=== PATIENT | female | born 1950 | race Caucasian/White ===

== ENCOUNTER 2016-04-22 06:32 | Day surgery (SDC) | payer MEDICARE ==
[2016-04-21 14:29] VITALS: BMI 27.4
[~2016-04-22 06:32] MED LIST: ALPRAZolam 0.25 MG TAB PO PRN; ALPRAZolam 0.5 MG TAB PO PRN; ASPIRIN 325 MG TAB PO STA; ATORVASTATIN 80 MG TAB PO STA; NITROGLYCERIN SL TABS 0.4 MG TAB SUBLINGUAL PRN; SODIUM CHLORIDE 0.9% 1,000 ML in EMPTY BAG 1 BAG IV ONE
[2016-04-22 06:50] VITALS: RESP 16; TEMP 98.1
[2016-04-22] MEDS ORDERED: VERAPAMIL 2.5 MG/ML 2 ML AMP ONE (07:10)
[2016-04-22] MEDS ORDERED: SODIUM CHLORIDE 0.9% (PF) 10 ML VIAL ONE (07:10)
[2016-04-22] MEDS ORDERED: LIDOCAINE 2% INJ 20 MG/ML (20 ML MDV) ONE (07:10)
[2016-04-22] MEDS ORDERED: diphenhydrAMINE 50 MG/ML 1 ML VIAL ONE (07:11)
[2016-04-22] MEDS ORDERED: fentaNYL (PF) 50 MCG/ML 2 ML AMP ONE (07:11)
[2016-04-22] MEDS ORDERED: diphenhydrAMINE 50 MG/ML 1 ML VIAL IVP ONE (07:35)
[2016-04-22] MEDS ORDERED: fentaNYL (PF) 50 MCG/ML 2 ML AMP IV ONE (07:35)
[2016-04-22] MEDS ORDERED: HEPARIN SODIUM 1,000 UNIT/ML VIAL ONE (07:39)
[2016-04-22] MEDS ORDERED: LIDOCAINE 2% INJ 20 MG/ML SQ ONE (07:39)
[2016-04-22] MEDS ORDERED: MIDAZOLAM 2 MG/2 ML VIAL ONE (07:43)
[2016-04-22] MEDS: MIDAZOLAM 2 MG/2 ML VIAL IVP ONE ×2 (07:44→07:47)
[2016-04-22] MEDS ORDERED: VERAPAMIL SYRINGE (5 MG/10 ML) INTRAARTER ONE (07:44)
[2016-04-22] MEDS ORDERED: HEPARIN SODIUM 1,000 UNIT/ML VIAL IV ONE (07:51)
[2016-04-22] MEDS ORDERED: IOHEXOL 350 MG/ML 100 ML BOTTLE INJ ONE (08:13)
[2016-04-22] MEDS ORDERED: RX INFO: IV CONTRAST WAS GIVEN 1 EACH MISC MISCELLANE PRN (08:21)
[2016-04-22] MEDS ORDERED: CYCLOBENZAPRINE 10 MG TAB PO PRN (08:22)
[2016-04-22] MEDS ORDERED: LEVOTHYROXINE PO SCH (08:30)
[2016-04-22] MEDS ORDERED: SODIUM CHLORIDE 0.9% 1,000 ML IV SCH (08:30)
[2016-04-22] MEDS ORDERED: LIOTHYRONINE SODIUM 5 MCG TAB PO SCH (09:00)
[2016-04-22] MEDS ORDERED: DULoxetine HCL 30 MG CAPSULE.DR PO SCH (09:00)
--- NOTE | 2016-04-22 10:07 | CC ---
DATE OF SERVICE: Mrs. Nunes is a 65-year-old female with known history of hypertension, hyperlipidemia, who has been complaining of occasional episodes of chest discomfort, underwent a myocardial perfusion imaging that revealed evidence of apical ischemia. In view of that, recommendation made regarding cardiac catheterization. The procedure as well as the risks and complications were discussed with the patient who is in full understanding and agreement. PROCEDURE: Patient was brought to the laboratory coordinator in a fasting semi-sedated state. After using fentanyl and Benadryl, she was draped and prepped in conventional fashion using Xylocaine anesthesia and Seldinger technique, a 6 Tajik sheath was introduced in left radial artery. Selective right and left coronary angiography was performed using 5 Tajik 4 bend right and left Stephane catheters. Multiple views of the coronary arteries including hemiaxial views were obtained. Following that, a 5 Tajik tight pigtail catheter was introduced into the left ventricle and a 30 degrees CUNHA view of the left ventricle was obtained. Following that, catheter and sheaths were removed. Hemostasis was obtained with deployment of a TR band. There were no immediate complications. Patient is returned to her room in stable condition. Of note, the patient received of 3500 units of intravenous heparin as well as intra-arterial verapamil. FLUOROSCOPY: There is calcification involving the left coronary system. LEFT MAIN: This is a large-size vessel bifurcating into the left circumflex, left anterior descending artery. Left main coronary artery has no evidence of high-grade stenosis. LEFT ANTERIOR DESCENDING ARTERY DISEASE: This is a moderately-sized vessel reaching toward the apex with a wrap around the apex segment, giving rise to 2 diagonal branches. The left anterior descending artery has intimal disease in the mid and distal segment with area of stenosis up to 40 to 50%. The vessel distally is small in caliber. The first diagonal branch has an area of stenosis of about 60% but the vessel beyond that is small in caliber. LEFT CIRCUMFLEX: This is a large dominant vessel, bifurcating into PDA and posterolateral segment and branches, giving rise to obtuse marginal branch proximally. The left circumflex and branches have no evidence of high-grade stenosis. RIGHT CORONARY ARTERY: This is a small nondominant vessel that has no evidence of high-grade stenosis. LEFT VENTRICULOGRAM: Left ventriculogram was performed in 30 degrees CUNHA view and revealed normal left ventricular size and systolic function. Ejection fraction 60%. HEMODYNAMICS: There was no gradient across the aortic valve. The left ventricular end-diastolic pressure was 16 mmHg. CONCLUSION: 1. Calcified coronary arteries. 2. Mild to moderate disease in the mid left anterior descending coronary artery with moderate significant disease in the small first diagonal branch. 3. Normal left ventricle size and systolic function. RECOMMENDATIONS: In view of findings and anatomy, I have recommend continued medical therapy with aggressive coronary risk factor modifications that has been initiated. Those findings and recommendations were discussed with the patient and her family and they are in full understanding and agreement.
--- NOTE | 2016-04-22 10:10 | LTR ---
April 22, 2016 RE: ManjuNoemi Dear Dr. Cazares: I had the pleasure of performing cardiac catheterization on Mrs. Nunes at [facility] on the 22 of April and a full copy of procedure note will be forwarded to you. In brief, she was found to have calcified coronary arteries. There was mild to moderate disease in the left anterior descending and a preserved systolic function. Based on those findings, I have recommended continued medical therapy with aggressive coronary risk factor modifications that you have initiated. Thank you again for allowing me to participate in her care. Please call for any questions. Sincerely, ADRIANNE MART MD
[2016-04-22 11:56] VITALS: BP 143/71; PULSE 82
[2016-04-22] MEDS ORDERED: ATORVASTATIN 10 MG TAB PO SCH (21:00)
[2016-04-22] MEDS ORDERED: lamoTRIgine 100 MG TAB PO SCH (21:00)
[2016-04-23] MEDS ORDERED: ASPIRIN 81 MG CHEW PO SCH (09:00)
[2016-04-23] MEDS ORDERED: LISINOPRIL-HCTZ 10-12.5 MG 1 EACH TAB PO SCH (09:00)
[2016-04-26] MEDS ORDERED: LEVOTHYROXINE 125 MCG TAB PO SCH (08:22)
== END 2016-04-22 13:01 | disposition home or self-care (01) ==
LOC: CATHCVL 06:32
PROVIDERS: ATTEND Internal Medicine Interventional Cardiology
DX: I25.10 Atherosclerotic heart disease of native coronary artery without angina pectoris (principal); I25.84 Coronary atherosclerosis due to calcified coronary lesion; E78.2 Mixed hyperlipidemia; I10 Essential (primary) hypertension; I44.7 Left bundle-branch block, unspecified; Z86.73 Personal history of transient ischemic attack (TIA), and cerebral infarction without residual deficits; Z98.84 Bariatric surgery status; Z82.49 Family history of ischemic heart disease and other diseases of the circulatory system; Z88.0 Allergy status to penicillin; F17.200 Nicotine dependence, unspecified, uncomplicated
CPT/HCPCS: 93458; C1894; C1769; J2001; J2250; J1200; Q9967; J3010; J1644